=== PATIENT | male | born 1970 | race Caucasian/White ===

== ENCOUNTER 2021-04-13 11:07 | Emergency (ER) | payer OTHER ==
[~2021-04-13] VITALS: Ht 165.1 cm; Wt 67.1 kg
[2021-04-13 11:10] VITALS: BP_SYST 152
[2021-04-13] MEDS ORDERED: IBUPROFEN 600 MG TABLET PO ONE ×2 (11:30→12:00)
[2021-04-13] MEDS ORDERED: METH-634 PO (12:47)
[2021-04-13] MEDS ORDERED: IBUP-1969 PO (12:47)
[2021-04-13 12:59] VITALS: BP_SYST 152
== END 2021-04-13 12:55 | disposition home or self-care (01) ==
LOC: SED 11:07
DX: S16.1XXA Strain of muscle, fascia and tendon at neck level, initial encounter (principal); S39.012A Strain of muscle, fascia and tendon of lower back, initial encounter; V49.49XA Driver injured in collision with other motor vehicles in traffic accident, initial encounter; Y93.89 Activity, other specified; Y92.89 Other specified places as the place of occurrence of the external cause; Y99.8 Other external cause status
CPT/HCPCS: 72040-TC; 72100-TC; 99284